=== PATIENT | female | born 1955 | race Caucasian/White ===

== ENCOUNTER → 2016-10-14 | Outpatient (CLI) | payer BC ==
--- NOTE | 2016-10-14 15:59 | MAMMOGRAPHY REPORT ---
BILATERAL DIGITAL SCREENING MAMMOGRAM WITH CAD: 10/14/2016 TECHNIQUE: Current study was also evaluated with a Computer Aided Detection (CAD) system. Bilatera l CC and MLO views were obtained. COMPARISON: Comparison is made to exams dated: 12/24/2014 mammogram, 09/12/2013 mammogram, 08/23/2012 m ammogram, 07/31/2010 mammogram, and 08/04/2011 mammogram - [facility]. BREAST COMPOSITION: There are scattered areas of fibroglandular density in both breasts. FINDINGS: No suspicious masses, calcifications, or areas of architectural distortion are noted in e ither breast. There has been no significant interval change compared to prior exams. Bilateral abdoulaye gn-appearing calcifications are not significantly changed. IMPRESSION: ACR BI-RADS CATEGORY 2: BENIGN There is no mammographic evidence of malignancy. A 1 year screening mammogram is recommended. The p atient will receive written notification of the results. Approximately 10% of breast cancers are not detected with mammography. A negative mammographic repor t should not delay biopsy if a clinically suggestive mass is present. Jeane Ott M.D. ah/:10/14/2016 15:35:18 Cad Application Support Specialist: Chelly HESS(Keith)(M), [facility] letter sent: Normal 1/2 BI-RADS Code: ACR BI-RADS Category 2: Benign
== END | disposition home or self-care (01) ==
LOC: C.MAMM 13:42
PROVIDERS: ATTEND Internal Medicine
DX: Z12.31 Encounter for screening mammogram for malignant neoplasm of breast (principal)

== ENCOUNTER → 2017-08-06 | Outpatient (CLI) | payer BC | END | disposition home or self-care (01) | LOC: C.PAPS 12:09 | PROVIDERS: ATTEND Obstetrics & Gynecology | DX: Z01.419 Encounter for gynecological examination (general) (routine) without abnormal findings (principal) ==

== ENCOUNTER → 2017-10-26 | Outpatient (CLI) | payer OTHER ==
--- NOTE | 2017-10-26 15:15 | MAMMOGRAPHY REPORT ---
BILATERAL DIGITAL SCREENING MAMMOGRAM TOMOSYNTHESIS WITH CAD: 10/26/2017 CLINICAL HISTORY: Routine screening. TECHNIQUE: Breast tomosynthesis in addition to standard 2D mammography was performed. Current study was also evaluated with a Computer Aided Detection (CAD) system. COMPARISON: Comparison is made to exams dated: 10/14/2016 mammogram, 12/31/2014 mammogram, 12/24/2014 ma mmogram, 09/12/2013 mammogram, 08/23/2012 mammogram, and 08/04/2011 mammogram - [facility]. BREAST COMPOSITION: There are scattered areas of fibroglandular density in both breasts. FINDINGS: There are mild vascular calcifications in the breasts and a few benign rim calcifications. No suspicious mass, architectural distortion or cluster of microcalcifications is seen. IMPRESSION: ACR BI-RADS CATEGORY 1: NEGATIVE There is no mammographic evidence of malignancy. A 1 year screening mammogram is recommended. The pa tient will receive written notification of the results. Approximately 10% of breast cancers are not detected with mammography. A negative mammographic report should not delay biopsy if a clinically suggestive mass is present. Chikis Amin M.D. ay/:10/26/2017 08:11:54 Questioned Documents Examiner: Rubina HESS(Keith)(Sal), [facility] letter sent: Normal 1/2 BI-RADS Code: ACR BI-RADS Category 1: Negative
== END | disposition home or self-care (01) ==
LOC: C.MAMM 07:30
PROVIDERS: ATTEND Obstetrics & Gynecology
DX: Z12.31 Encounter for screening mammogram for malignant neoplasm of breast (principal)

== ENCOUNTER 2025-02-10 15:13 | Inpatient (IN) ==
[2025-02-10] MEDS: HYDROmorphone INJ 0.5 MG/0.5 ML SYR IV STA (15:39)
[2025-02-10] MEDS: ONDANSETRON INJ 2 MG/ML 2 ML VIAL IV STA ×2 (15:40→17:20)
[2025-02-10 15:49] LABS: Hematocrit (blood only) 37.0 % (37.0-47.0); Hemoglobin 12.8 g/dl (12.0-16.0); Immature Granulocytes # (auto) 0.01 K/uL (0.01-0.20); Immature Granulocytes % (auto) 0.2 %; Mean Corpuscular Hemoglobin 30.8 pg (25.0-34.0); Mean Corpuscular Volume 88.9 fL (80.0-100.0); Platelet Count 236 K/uL (130-400); RDW Standard Deviation 40.7 fL (36.4-46.3); Red Blood Count 4.16 M/uL (4.20-5.40); White Blood Count 5.42 K/ul (4.8-10.8)
[2025-02-10] MEDS: OPTIRAY 320 100ml IV ONE (15:55)
[2025-02-10 15:57] LABS: Alanine Aminotransferase 20.0 U/L (7-52); Albumin Globulin Ratio 1.3 (0.9-2); Alkaline Phosphatase 73.0 U/L (34-104); Anion Gap 7.0 (3-11); Bilirubin,Total 0.5 mg/dl (0.2-1.0); Blood Urea Nitrogen 13.0 mg/dl (6-23); Calcium 8.8 mg/dl (8.6-10.3); Carbon Dioxide 23.0 mmol/L (21-32); Chloride 108.0 mmol/L (98-107); Creatinine Clr Calc Pharmacy 76.4 ml/min; Globulin 3.1 gm/dl (2.5-4.0); Glucose 115.0 mg/dl (70-99(Fasting)); Lipase 42.0 U/L (11-82); Potassium 3.9 mmol/L (3.5-5.1); Sodium 138.0 mmol/L (136-145); Total Protein 7.0 gm/dl (6.0-8.3)
--- NOTE | 2025-02-10 15:57 | Emergency Department Note ---
Impression & Plan Fall from ladder, Closed comminuted intertrochanteric fracture of left femur, Trauma ED Provider Note HISTORY OF PRESENT ILLNESS: Patient is a 69-year-old female presenting after a fall. Patient reports she was on a 7 foot ladder and fell from the ground just prior to the tiptop. She states that the ladder gave out from under her and she fell to the side, landing on her left hip. She denies striking her head or loss of consciousness. She is on 81 mg of aspirin daily, but no other antiplatelet or anticoagulant therapy. She had obvious pain and deformity to the left leg and was able to get up on her own and her called 911. Patient is currently complaining of 10 out of 10 pain in her left proximal femur and left hip. After my assessment of the patient, a trauma alert was called. Patient last ate lunch at 12 noon. ROS: as above PHYSICAL EXAM: Primary Survey Airway: Intact Breathing: Normal, breath sounds equal bilaterally Circulation: Skin warm, distal pulses 2+, capillary refill less than 2 seconds Disability Pupils: Equal and reactive to light, 3 mm, brisk GCS: 15, E = 4, V=5, M= 6 Motor Function: Moves all extremities. Sensory: No deficits Secondary Survey GEN: Well developed and well-nourished HENT: Head: No external signs of trauma. Mouth/Throat: Midface stable. No malocclusion. Eyes: EOMI. Pupils are 3 mm, round and reactive bilaterally. Nose: No nasal septal hematoma. No gross deformity. Neck: No midline C-spine tenderness. No step-offs. Cardiovascular: RRR. Pulses present in all 4 extremities. Pulmonary/Chest: BS equal bilaterally. No tenderness or ecchymosis. Abdomen: No tenderness or ecchymosis. Musculoskeletal: Pelvis: No instability. Back: No midline tenderness. No step-offs or deformities. Extremities: Obvious deformity to the proximal left leg. Leg is resting externally rotated. No open wounds. Patient has significant tenderness to the deformity overlying her proximal femur. Able to wiggle toes, dorsiflex and plantarflex the ankle. Sensation intact to light touch at the nerve distributions of the lower leg. Intact DP and PT pulses on the left. Skin: No laceration. No abrasion. Neuro: No focal neurological deficits. GCS as above. Psych: Normal mood and affect. MDM: - Vitals signs showed hypertension - History obtained via patient. History as above. - Chronic conditions affecting care: HTN; HLD - Differential diagnoses include, but are not limited to: Femur fracture; femur dislocation; pelvic fracture; liver laceration; pneumothorax; intracranial hemorrhage - Order placed for continuous cardiac monitoring. At this time, monitor showed rate of 67 bpm with normal sinus rhythm, per my interpretation. - External medical records reviewed. - After my initial assessment of the patient, I did activated trauma alert, given her obvious femur deformity and her fall from off of a ladder. X-ray tech presented to bedside. Chest x-ray imaging negative for pneumothorax, per my interpretation. X-ray images of the left hip show comminuted fracture of the proximal femur, per my interpretation. Patient's leg is awkwardly positioned externally rotated with the obvious deformity to the proximal mid thigh. She was given 0.5 mg of IV Dilaudid and 4 mg IV Zofran to help with pain control nausea, and I pulled traction on her lower leg to help anatomically straighten her deformity. Able to straighten the patient's leg out with some improvement in her pain. CT images ordered for further trauma assessment. - Discussed case with LETA, Richie Mei, with orthopedic surgery at 15:48. He will discuss the case with his overseeing orthopedic surgeon, Dr. Kamara. Informed that patient's last PO intake was 12 noon. - Richie Mei recommended, per Dr. Kamara, admit to medicine for medical clearance, placing the patient in Delgado's traction, TXA for the fracture bleed and plan for surgical fixation tomorrow. Richie ordered the Delgado's traction and TXA. - EKG image interpreted by myself showed normal sinus rhythm. Rate 62 bpm. QT 476. No acute ischemic changes. - Laboratory workup interpreted by myself showed normal WBC; normal PT/INR; stable electrolytes; normal lipase - CT head without contrast negative for acute intracranial pathology. - CT cervical spine wo contrast negative for acute traumatic injury - CT chest/abdomen/pelvis with IV contrast negative for acute traumatic injury other than the patient's displaced and comminuted fracture of the intertrochanteric and subtrochanteric femur. - TXA ordered by orthopedics - Patient having continued vomiting. Given zofran but still continued to vomit. Given 5 mg IV compazine. - Patient given PRN zofran and fentanyl for further pain management. Given 1g IV tylenol for further pain control. - Discussion was had with field case manager about patient's case and need for admission - Hospitalist consulted for admission - Patient admitted to [facility] for further evaluation and management. I have personally spent 41 minutes of critical care time in the direct management of this patient. This includes bedside care, interpretation of diagnostic studies, and testing, discussion with consultants, patient, and family members, and other required patient management activities. This 41 minutes is in excess of all separately billable procedures. ASSESSMENT AND PLAN: Diagnosis: Fall off ladder; comminuted comminuted intertrochanteric fracture left femur; trauma Plan: Admit Past Med/Surg History Problem List (Updated 02/10/25 @ 17:41 by Clint Martinez MD) Trauma (Acute) Closed comminuted intertrochanteric fracture of left femur (Acute) Fall from ladder (Acute) Medical History (Updated 02/10/25 @ 17:41 by Clint Martinez MD) Female bladder prolapse Migraine Mild tricuspid regurgitation Mild mitral regurgitation Diastolic dysfunction Hyperlipidemia Prediabetes Surgical History (Updated 02/10/25 @ 17:42 by Clint Martinez MD) History of colonoscopy Family History (Updated 02/10/25 @ 17:44 by Clint Martinez MD) Mother Hypertension Father Hypertension Heart disease Social History Smoking Status: Never smoker Preferred Language: Armenian Feels Safe at Home: Yes Allergies Allergies Allergy/AdvReac Type Severity Reaction Status Date / Time No Known Drug Allergies Allergy Unknown Verified 02/10/25 16:16 Home Meds Home Medications Medication Instructions Recorded Confirmed aspirin 81 mg tablet,delayed 81 mg PO QAM 02/10/25 02/10/25 release rosuvastatin 5 mg tablet 5 mg PO QAM 02/10/25 02/10/25 Results & Data (ED) Vital Signs Vital Signs - 24 hr 02/10/25 15:05 02/10/25 15:30 02/10/25 15:30 Temperature 36.6 C 36.6 C 36.6 C Temperature Source Oral Oral Pulse Rate 64 58 L Pulse Rate [Right Finger] 58 L Respiratory Rate 20 18 20 Respiratory Effort / Characteristics Non-Labored Spontaneous Non-Labored Spontaneous Respiratory Depth Normal Normal Blood Pressure 191/90 H 191/89 H Blood Pressure [Right Arm] 191/89 H Blood Pressure Mean 123 Blood Pressure Mean [Right Arm] 123 Pulse Oximetry 98 98 98 Oxygen Delivery Method Room Air Room Air Room Air Oxygen Flow Rate 0 Sepsis Recent Fever Within 48 Hours No Sepsis New/Unexplained Change in Mental Status No Sepsis Action Taken by Nursing No Action Required 02/10/25 15:43 02/10/25 16:30 02/10/25 17:00 Temperature 36.6 C Temperature Source Oral Pulse Rate 68 Pulse Rate [Right Finger] 64 67 Respiratory Rate 18 20 Respiratory Effort / Characteristics Non-Labored Spontaneous Non-Labored Spontaneous Respiratory Depth Normal Normal Blood Pressure Blood Pressure [Right Arm] 173/124 H 141/99 H Blood Pressure Mean Blood Pressure Mean [Right Arm] 140 113 Pulse Oximetry 99 98 Oxygen Delivery Method Room Air Room Air Oxygen Flow Rate Sepsis Recent Fever Within 48 Hours Sepsis New/Unexplained Change in Mental Status Sepsis Action Taken by Nursing 02/10/25 17:05 02/10/25 17:25 Temperature Temperature Source Pulse Rate Pulse Rate [Right Finger] 67 54 L Respiratory Rate 18 20 Respiratory Effort / Characteristics Non-Labored Spontaneous Non-Labored Spontaneous Respiratory Depth Normal Normal Blood Pressure Blood Pressure [Right Arm] 141/99 H 124/70 Blood Pressure Mean Blood Pressure Mean [Right Arm] 113 88 Pulse Oximetry 98 98 Oxygen Delivery Method Room Air Room Air Oxygen Flow Rate Sepsis Recent Fever Within 48 Hours Sepsis New/Unexplained Change in Mental Status Sepsis Action Taken by Nursing Laboratory Data 02/10/25 15:21 02/10/25 15:21 Lab Results 02/10/25 02/10/25 Range/Units 15:21 15:39 WBC 5.42 (4.8-10.8) K/ul RBC 4.16 L (4.20-5.40) M/uL Hgb 12.8 (12.0-16.0) g/dl POC Hgb 12.9 (12.0-16.0) g/dl Hct 37.0 (37.0-47.0) % POC Hct 38 (37-47) % MCV 88.9 (80.0-100.0) fL MCH 30.8 (25.0-34.0) pg MCHC 34.6 (32.0-36.0) g/dL RDW Std Deviation 40.7 (36.4-46.3) fL RDW Coeff of Nick 12.4 (11.5-14.5) % Plt Count 236 (130-400) K/uL MPV 9.6 (9.4-12.4) fL Immature Gran % (Auto) 0.2 % Neut % (Auto) 50.4 % Lymph % (Auto) 40.2 % [place] % (Auto) 7.9 % Eos % (Auto) 0.9 % Baso % (Auto) 0.4 % Neut # (Auto) 2.73 (1.40-6.50) K/uL Lymph # (Auto) 2.18 (1.20-3.40) K/uL [place] # (Auto) 0.43 (0.11-0.59) K/uL Eos # (Auto) 0.05 (0.00-0.50) K/uL Baso # (Auto) 0.02 (0.00-0.20) K/uL Immature Gran # (Auto) 0.01 (0.01-0.20) K/uL PT 11.0 (9.0-12.0) Seconds INR 1.0 (0.9-1.1) APTT 26 (21-31) Seconds PTT Ratio 1.0 POC Sodium 141 (135-144) mmol/L Sodium 138 (136-145) mmol/L POC Potassium 4.0 (3.3-5.0) mmol/L Potassium 3.9 (3.5-5.1) mmol/L POC Chloride 107 (101-112) mmol/L Chloride 108 H (98-107) mmol/L Carbon Dioxide 23 (21-32) mmol/L POC Total CO2 21 L (24-31) mmol/L Anion Gap 7 (3-11) POC Anion Gap 18.0 (16-25) mmol/L POC BUN 11 (7-18) mg/dl BUN 13 (6-23) mg/dl Creatinine 0.60 (0.6-1.2) mg/dl POC Creatinine 0.6 (0.6-1.3) mg/dl Est Cr Clr Drug Dosing 76.4 ml/min eGFR 97.10 BUN/Creatinine Ratio 21.7 H (10-20) Glucose 115 H (70-99(Fasting)) mg/dl POC Glucose (other) 115 H (70-99) mg/dl Calcium 8.8 (8.6-10.3) mg/dl POC Ioniz Calcium Oleg 1.16 (1.12-1.32) mmol/l Total Bilirubin 0.5 (0.2-1.0) mg/dl AST 24 (13-39) U/L ALT 20 (7-52) U/L Alkaline Phosphatase 73 (34-104) U/L Total Protein 7.0 (6.0-8.3) gm/dl Albumin 3.9 (3.4-5.0) gm/dl Globulin 3.1 (2.5-4.0) gm/dl Albumin/Globulin Ratio 1.3 (0.9-2) Lipase 42 (11-82) U/L Administered Medications Fentanyl Citrate (Fentanyl Citrate Pf 100 Mcg/2 Ml Vial) 50 mcg IV Q45M PRN PRN Reason: Pain Stop: 02/24/25 15:47 Last Admin: 02/10/25 16:35 Dose: 50 mcg Documented By: FLASH Tranexamic Acid (Tranexamic Acid / 0.7% Nacl) 1,000 mg in 100 mls @ 12.5 mls/hr IV .Q8H ONE Stop: 02/11/25 00:10 Last Admin: 02/10/25 16:38 Dose: 12.5 mls/hr Documented By: FLASH Discontinued Medications Acetaminophen (Acetaminophen 500 Mg Tab) 1,000 mg PO NOW STA Stop: 02/10/25 15:49 Last Admin: 02/10/25 16:39 Dose: Not Given Documented By: FLASH Hydromorphone HCl (Hydromorphone Inj 0.5 Mg/0.5 Ml Syr) 0.5 mg IV NOW STA Stop: 02/10/25 15:35 Last Admin: 02/10/25 15:39 Dose: 0.5 mg Documented By: FLASH Tranexamic Acid (Tranexamic Acid / 0.7% Nacl) 1,000 mg in 100 mls @ 600 mls/hr IV NOW STA Stop: 02/10/25 16:20 Last Infusion: 02/10/25 17:06 Dose: Infused Documented By: Admin: 02/10/25 16:35 Dose: 600 mls/hr Documented By: FLASH Acetaminophen (Ofirmev) 1,000 mg in 100 mls @ 400 mls/hr IV NOW STA Stop: 02/10/25 16:33 Last Infusion: 02/10/25 17:05 Dose: Infused Documented By: Admin: 02/10/25 16:27 Dose: 400 mls/hr Documented By: SATHISH Ioversol (Optiray 320 100ml) 93 ml IV ONCE ONE Stop: 02/10/25 15:56 Last Admin: 02/10/25 15:55 Dose: 93 ml Documented By: EDK Miscellaneous Information (Patient's Allergy Info Needs Entered) 1 each N/A Q30M STA Stop: 02/10/25 16:16 Last Admin: 02/10/25 17:26 Dose: 1 each Documented By: CTK Ondansetron HCl (Ondansetron Inj 2 Mg/Ml 2 Ml Vial) 4 mg IV NOW STA Stop: 02/10/25 15:35 Last Admin: 02/10/25 15:40 Dose: 4 mg Documented By: CTK Ondansetron HCl (Ondansetron Inj 2 Mg/Ml 2 Ml Vial) 4 mg IV NOW STA Stop: 02/10/25 17:13 Last Admin: 02/10/25 17:20 Dose: 4 mg Documented By: CTK Imaging Data Radiologist's Impression: Abdomen/Pelvis CT 02/10/25 15:34 CT ABDOMEN and PELVIS with INTRAVENOUS CONTRAST HISTORY: Abdominal pain TECHNIQUE: CT abdomen and pelvis with contrast. IV CONTRAST: 100 mL of OMNIPAQUE 300 ENTERIC CONTRAST: Not Given COMPARISON: FINDINGS: LIVER: Hepatic steatosis. Scattered tiny hypodensities measuring up to 8 mm are probably cysts or hemangiomas GALLBLADDER/BILIARY: Unremarkable gallbladder. No abnormal biliary dilatation. SPLEEN: Unremarkable. PANCREAS: Unremarkable. ADRENALS: Unremarkable. KIDNEYS: Cortical scarring and multiple cortical cysts. There is a thin rind of calcification versus septation in the dominant right renal cyst in the upper pole measuring 2.6 cm. No stones or hydronephrosis identified. PERITONEUM/RETROPERITONEUM. No lymphadenopathy by size criteria. No aortic aneurysm. GASTROINTESTINAL: No obstruction. Normal appendix. Colonic diverticulosis without evidence of diverticulitis. REPRODUCTIVE: No suspicious pelvic mass detected. BONES: Displaced acute and traumatic and comminuted fractures of the intertrochanteric and subtrochanteric left femur and surrounding intramuscular hematomas.. IMPRESSION: Displaced acute and traumatic and comminuted fractures of the intertrochanteric and subtrochanteric left femur and surrounding intramuscular hematomas. Otherwise no evidence of acute visceral trauma in the abdomen or the pelvis. Right renal cystic lesion measuring 2.6 cm with septations versus calcifications. Nonemergent renal ultrasound may be considered to exclude complexity. Electronically signed by Yakov Fuentes 02-10-2025 4:[address] 02/10/25 15:34 CT CERVICAL SPINE WITHOUT CONTRAST: HISTORY: Trauma TECHNIQUE: Noncontrast CT examination of the cervical spine is performed. Coronal and sagittal reformats were created. COMPARISON: None FINDINGS: CERVICAL SPINE: There is no significant vertebral body height loss. No acute traumatic fracture identified. There is no significant spondylolisthesis. Multilevel degenerative changes characterized by disc osteophyte complex, bilateral facet and uncovertebral hypertrophy resulting and neural foraminal narrowing at multiple levels, worst at mid to lower spine. Visualized soft tissues of neck are unremarkable. IMPRESSION: No acute traumatic fracture of the cervical spine. Multilevel degenerative changes as above Electronically signed by Yakov Fuentes 02-10-2025 4:[address] 02/10/25 15:34 CT CHEST WITH CONTRAST: HISTORY: TECHNIQUE: CT of the chest was obtained with intravenous contrast. Coronal and sagittal reformats were created. IV CONTRAST: 100 mL of OMNIPAQUE 300 COMPARISON: FINDINGS: LOWER NECK: Normal thyroid. LYMPH NODES: A few small nonenlarged lymph nodes in the mediastinum. No lymphadenopathy by size criteria. CARDIOVASCULAR: Cardiac size is normal. Coronary artery calcifications are noted. No aortic aneurysm. LUNGS: The trachea and central bronchi are widely patent. No focal confluent infiltrates are seen. There are scattered pulmonary nodules measuring up to 3 mm (for example a perifissural nodule in the left upper lobe (series 8, image 19). PLEURA: There are no pleural effusions. There is no pneumothorax. OSSEOUS STRUCTURES: No acute findings IMPRESSION: No evidence of acute trauma to the thorax. Electronically signed by Yakov Fuentes 02-10-2025 4:33 PM Chest X-Ray 02/10/25 15:34 HISTORY: Left femur deformity after fall. TECHNIQUE: Portable AP radiograph of the chest. COMPARISON: None. FINDINGS: No focal lung consolidation. No pneumothorax or pleural effusion. Normal heart size. Left-sided aortic arch. Midline trachea. air sampling and monitoring leads overlie the chest. No acute osseous abnormality. Included upper abdomen is unremarkable. IMPRESSION: No acute cardiopulmonary findings. Electronically signed by Mal Bah 02-10-2025 3:[address] 02/10/25 15:34 CT HEAD: HISTORY: Trauma TECHNIQUE: Noncontrast CT examination of the head is performed. Coronal and sagittal reformats were created. COMPARISON: None FINDINGS: There is no evidence of intracranial hemorrhage, focal mass effect or midline shift. No fluid collection is identified. The ventricular system is midline and symmetric. Age-related involutional changes of the brain and chronic white matter ischemic changes. 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 The paranasal sinuses and mastoids are well aerated. IMPRESSION: No acute intracranial process identified. Chronic findings as above Electronically signed by Yakov Fuentes 02-10-2025 4:33 PM Hip X-Ray 02/10/25 15:34 HISTORY: Left hip deformity after fall. TECHNIQUE: Left hip, 3 views. COMPARISON: None. FINDINGS: Acute comminuted significantly displaced and angulated fracture involving the intertrochanteric and subtrochanteric regions of the left proximal femur. The visible portion of the left The pelvis appears intact. Soft tissue edema about the left hip. IMPRESSION: Acute comminuted significantly displaced and angulated fracture involving the intertrochanteric and subtrochanteric regions of the left proximal femur. Electronically signed by Mal Bah 02-10-2025 3:53 PM Pelvis X-Ray 02/10/25 15:34 HISTORY: Left femur deformity after fall. TECHNIQUE: AP radiograph of the pelvis. COMPARISON: Left hip radiographs acquired at the same time. FINDINGS: Acute comminuted significantly displaced and angulated fracture involving the intertrochanteric and subtrochanteric regions of the left proximal femur. The femoral heads remain appropriately aligned with the acetabulum. The pelvic and obturator rings appear intact. There is no widening of the pubic symphysis or sacroiliac joints. Included lower lumbar spine is unremarkable. Right femoral head and proximal femur appear intact. IMPRESSION: Acute comminuted significantly displaced and angulated fracture involving the intertrochanteric and subtrochanteric regions of the left proximal femur. Electronically signed by Mal Bah 02-10-2025 3:54 PM Discharge Plan Visit Data Chief Complaint: Trauma ED Provider: Mere Ponce Discharge Problem: Fall from ladder, Closed comminuted intertrochanteric fracture of left femur, Trauma Condition: Serious Forms Stand Alone Forms: My [facility] Prescriptions Prescriptions: No Action aspirin 81 mg Tablet,Delayed Release (Dr/Ec) 81 mg PO QAM rosuvastatin 5 mg tablet 5 mg PO QAM Referrals Referrals: Geronimo Hinkle MD [Primary Care Provider] -
[2025-02-10 16:22] LABS: INR 1.0 (0.9-1.1); Partial Thromboplastin Time 26 Seconds (21-31); Prothrombin Time 11.0 Seconds (9.0-12.0)
[2025-02-10] MEDS: ACETAMINOPHEN 1,000 MG/100 ML VIAL IV STA (16:27)
--- NOTE | 2025-02-10 16:33 | CT Scan Report ---
CT HEAD: HISTORY: Trauma TECHNIQUE: Noncontrast CT examination of the head is performed. Coronal and sagittal reformats were created. COMPARISON: None FINDINGS: There is no evidence of intracranial hemorrhage, focal mass effect or midline shift. No fluid collection is identified. The ventricular system is midline and symmetric. Age-related involutional changes of the brain and chronic white matter ischemic changes. 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 The paranasal sinuses and mastoids are well aerated. IMPRESSION: No acute intracranial process identified. Chronic findings as above Electronically signed by Yakov Fuentes 02-10-2025 4:33 PM
--- NOTE | 2025-02-10 16:34 | CT Scan Report ---
CT ABDOMEN and PELVIS with INTRAVENOUS CONTRAST HISTORY: Abdominal pain TECHNIQUE: CT abdomen and pelvis with contrast. IV CONTRAST: 100 mL of OMNIPAQUE 300 ENTERIC CONTRAST: Not Given COMPARISON: FINDINGS: LIVER: Hepatic steatosis. Scattered tiny hypodensities measuring up to 8 mm are probably cysts or hemangiomas GALLBLADDER/BILIARY: Unremarkable gallbladder. No abnormal biliary dilatation. SPLEEN: Unremarkable. PANCREAS: Unremarkable. ADRENALS: Unremarkable. KIDNEYS: Cortical scarring and multiple cortical cysts. There is a thin rind of calcification versus septation in the dominant right renal cyst in the upper pole measuring 2.6 cm. No stones or hydronephrosis identified. PERITONEUM/RETROPERITONEUM. No lymphadenopathy by size criteria. No aortic aneurysm. GASTROINTESTINAL: No obstruction. Normal appendix. Colonic diverticulosis without evidence of diverticulitis. REPRODUCTIVE: No suspicious pelvic mass detected. BONES: Displaced acute and traumatic and comminuted fractures of the intertrochanteric and subtrochanteric left femur and surrounding intramuscular hematomas.. IMPRESSION: Displaced acute and traumatic and comminuted fractures of the intertrochanteric and subtrochanteric left femur and surrounding intramuscular hematomas. Otherwise no evidence of acute visceral trauma in the abdomen or the pelvis. Right renal cystic lesion measuring 2.6 cm with septations versus calcifications. Nonemergent renal ultrasound may be considered to exclude complexity. Electronically signed by Yakov Fuentes 02-10-2025 4:33 PM
--- NOTE | 2025-02-10 16:34 | CT Scan Report ---
CT CERVICAL SPINE WITHOUT CONTRAST: HISTORY: Trauma TECHNIQUE: Noncontrast CT examination of the cervical spine is performed. Coronal and sagittal reformats were created. COMPARISON: None FINDINGS: CERVICAL SPINE: There is no significant vertebral body height loss. No acute traumatic fracture identified. There is no significant spondylolisthesis. Multilevel degenerative changes characterized by disc osteophyte complex, bilateral facet and uncovertebral hypertrophy resulting and neural foraminal narrowing at multiple levels, worst at mid to lower spine. Visualized soft tissues of neck are unremarkable. IMPRESSION: No acute traumatic fracture of the cervical spine. Multilevel degenerative changes as above Electronically signed by Yakov Fuentes 02-10-2025 4:33 PM
--- NOTE | 2025-02-10 16:34 | CT Scan Report ---
CT CHEST WITH CONTRAST: HISTORY: TECHNIQUE: CT of the chest was obtained with intravenous contrast. Coronal and sagittal reformats were created. IV CONTRAST: 100 mL of OMNIPAQUE 300 COMPARISON: FINDINGS: LOWER NECK: Normal thyroid. LYMPH NODES: A few small nonenlarged lymph nodes in the mediastinum. No lymphadenopathy by size criteria. CARDIOVASCULAR: Cardiac size is normal. Coronary artery calcifications are noted. No aortic aneurysm. LUNGS: The trachea and central bronchi are widely patent. No focal confluent infiltrates are seen. There are scattered pulmonary nodules measuring up to 3 mm (for example a perifissural nodule in the left upper lobe (series 8, image 19). PLEURA: There are no pleural effusions. There is no pneumothorax. OSSEOUS STRUCTURES: No acute findings IMPRESSION: No evidence of acute trauma to the thorax. Electronically signed by Yakov Fuentes 02-10-2025 4:33 PM
[2025-02-10] MEDS: TRANEXAMIC ACID / 0.7% NACL 1,000 MG/100 ML BAG IV STA (16:35)
[2025-02-10] MEDS: TRANEXAMIC ACID / 0.7% NACL 1,000 MG/100 ML BAG IV ONE (16:38)
[2025-02-10] MEDS: ACETAMINOPHEN 500 MG TAB PO STA (16:39)
[2025-02-10] MEDS ORDERED: TRANEXAMIC ACID / 0.7% NACL 1,000 MG/100 ML BAG IV ONE ×3 (16:43→22:43)
[2025-02-10] MEDS ORDERED: MAGNESIUM HYDROXIDE SUSP 30 ML UDC PO PRN (17:24)
[2025-02-10] MEDS ORDERED: NALOXONE HCL 0.4 MG/1 ML VIAL/CARP IV PRN (17:24)
--- NOTE | 2025-02-10 17:31 | History & Physical Report ---
Date of Service February 10, 2025 Assessment & Plan (1) Closed comminuted intertrochanteric fracture of left femur: Plan: Pt presents as trauma after falling off the ladder Prior to fall she fell well, only takes statin and ASA, some supplements, follows w/ Dr. Hinkle ([facility] PCP) In ED flores scanned CT - c/w Displaced acute and traumatic and comminuted fractures of the intertrochanteric and subtrochanteric left femur and surrounding intramuscular hematomas. Currently pt lying in bed , traction to LLE applied Orthopedics (Dr. Kamara) was consulted by ED provider and discussed with ED provider - orders in EMS Plan for surg. repair tomorrow, NPO after MN, hold asa tranexamic acid, pre-op cefazolin also ordered by ortho Anesthesia consulted by orthopedics cont. w/SCDs for now, DVT ppx per orthopedics pain control prn ordered Revised cardiac risk index for pre-op risk - 0 points -> 3.9% risk of major cardiac event Incidental finding Right renal cystic lesion measuring 2.6 cm with septations versus calcifications. Nonemergent renal ultrasound may be considered to exclude complexity. Follow up as outpt Chronic conditions: Prediabetes. Hgb A1c 5.6% in March 2024 - already has scheduled repeat w/ pcp. monitor Blood glc level while inpt Hyperlipidemia - cont. statin Hx of PVCs, diastolic dysfunction, mild mitral regurg., mild tricuspid regurg. - monitor fluid status, however no prior hx of HF (2) Trauma: (3) Fall from ladder: History of Present Illness Chief Complaint: fall, femur fx Primary Care Provider: Geronimo Hinkle MD 69 F with hx of prediabetes, hyperlipidemia, PVC, mild mitral regurg., mild tricuspid regurg., diastolic dysfunction, hx of bladder prolapse, hx of migraine who presents in ED via EMS after falling off ladder and hitting side of her left leg, found to have left comminuted significantly displaced and angulated femur fracture. Pt was gardening, standing on the ladder and trimming wisteria bushes when the ladder tipped over on its side and she ended up falling on her left leg. Prior to this, she felt well and in her good health. No fever, chills, chest pain, shortness of breath, no abd. pain, n/v. No lightheadedness, or dizziness. Pt's is present at the bedside and helps provide history, says he was in the house when he heard her scream and reports it was obvious when he found her she had significant injury to her leg. Pt's friends also present at the bedside visiting. Pt is currently lying in bed, with her left leg in traction, she is awake, alert, answers appropriately. Reports some nausea after getting pain meds. Per ED provider, orthopedic surgery, Dr. Kamara consulted and plans to operate on the pt tomorrow. Anesthesia also consulted. Allergies Allergy/AdvReac Type Severity Reaction Status Date / Time No Known Drug Allergies Allergy Unknown Verified 02/10/25 16:16 Home Medications Medication Instructions Recorded Confirmed Type aspirin 81 mg tablet,delayed 81 mg PO QAM 02/10/25 02/10/25 History release rosuvastatin 5 mg tablet 5 mg PO QAM 02/10/25 02/10/25 History Past Med/Surg History Problem List (Updated 02/10/25 @ 17:41 by Clint Martinez MD) Trauma (Acute) Closed comminuted intertrochanteric fracture of left femur (Acute) Fall from ladder (Acute) Medical History (Updated 02/10/25 @ 17:41 by Clint Martinez MD) Female bladder prolapse Migraine Mild tricuspid regurgitation Mild mitral regurgitation Diastolic dysfunction Hyperlipidemia Prediabetes Surgical History (Updated 02/10/25 @ 17:42 by Clint Martinez MD) History of colonoscopy Family History (Updated 02/10/25 @ 17:44 by Clint Martinez MD) Mother Hypertension Father Hypertension Heart disease Social History Smoking Status: Never smoker Preferred Language: Mozambican Feels Safe at Home: Yes Review of Systems Review of Systems: All systems reviewed & are unremarkable except as noted in HPI & below Physical Exam Constitutional: WD/WN, vitals as above Eyes: PERRL, conjunctivae normal, anicteric sclerae ENMT: external ear and nose normal, oropharynx normal Neck: normal visual inspection Respiratory: normal respiratory effort, lungs clear to auscultation Cardiovascular: RRR, no murmur, no edema Chest (Breasts): Chest: normal inspection of chest Gastrointestinal (Abdomen): normal bowel sounds, soft, nontender, no hepatosplenomegaly Musculoskeletal: LLE in traction d/t fractures, no LE edema Skin: no rashes, warm and dry Neurologic: PERRL, EOMI, accommodation nl, no face palsy, no dysarthria Psychiatric: A+Ox3, euthymic affect Results & Data Results & Data Vital Signs (Past 12 Hours) Vital Signs Temp Pulse Pulse Resp BP BP Pulse Ox 02/10/25 17:05 67 18 141/99 H 98 02/10/25 17:00 36.6 C 67 20 141/99 H 98 02/10/25 16:30 64 18 173/124 H 99 02/10/25 15:43 68 02/10/25 15:30 36.6 C 58 L 20 191/89 H 98 02/10/25 15:30 36.6 C 58 L 18 191/89 H 98 02/10/25 15:05 36.6 C 64 20 191/90 H 98 O2 Del Method O2 Flow Rate 02/10/25 17:05 Room Air 02/10/25 17:00 Room Air 02/10/25 16:30 Room Air 02/10/25 15:43 02/10/25 15:30 Room Air 02/10/25 15:30 Room Air 0 02/10/25 15:05 Room Air Laboratory Results 02/10/25 02/10/25 Range/Units 15:39 15:21 WBC 5.42 (4.8-10.8) K/ul RBC 4.16 L (4.20-5.40) M/uL Hgb 12.8 (12.0-16.0) g/dl POC Hgb 12.9 (12.0-16.0) g/dl Hct 37.0 (37.0-47.0) % POC Hct 38 (37-47) % MCV 88.9 (80.0-100.0) fL MCH 30.8 (25.0-34.0) pg MCHC 34.6 (32.0-36.0) g/dL RDW Std Deviation 40.7 (36.4-46.3) fL RDW Coeff of Nick 12.4 (11.5-14.5) % Plt Count 236 (130-400) K/uL MPV 9.6 (9.4-12.4) fL Immature Gran % (Auto) 0.2 % Neut % (Auto) 50.4 % Lymph % (Auto) 40.2 % Dundy % (Auto) 7.9 % Eos % (Auto) 0.9 % Baso % (Auto) 0.4 % Neut # (Auto) 2.73 (1.40-6.50) K/uL Lymph # (Auto) 2.18 (1.20-3.40) K/uL [place]undy # (Auto) 0.43 (0.11-0.59) K/uL Eos # (Auto) 0.05 (0.00-0.50) K/uL Baso # (Auto) 0.02 (0.00-0.20) K/uL Immature Gran # (Auto) 0.01 (0.01-0.20) K/uL PT 11.0 (9.0-12.0) Seconds INR 1.0 (0.9-1.1) APTT 26 (21-31) Seconds PTT Ratio 1.0 POC Sodium 141 (135-144) mmol/L Sodium 138 (136-145) mmol/L POC Potassium 4.0 (3.3-5.0) mmol/L Potassium 3.9 (3.5-5.1) mmol/L POC Chloride 107 (101-112) mmol/L Chloride 108 H (98-107) mmol/L Carbon Dioxide 23 (21-32) mmol/L POC Total CO2 21 L (24-31) mmol/L Anion Gap 7 (3-11) POC Anion Gap 18.0 (16-25) mmol/L POC BUN 11 (7-18) mg/dl BUN 13 (6-23) mg/dl Creatinine 0.60 (0.6-1.2) mg/dl POC Creatinine 0.6 (0.6-1.3) mg/dl Est Cr Clr Drug Dosing 76.4 ml/min eGFR 97.10 BUN/Creatinine Ratio 21.7 H (10-20) Glucose 115 H (70-99(Fasting)) mg/dl POC Glucose (other) 115 H (70-99) mg/dl Calcium 8.8 (8.6-10.3) mg/dl POC Ioniz Calcium Oleg 1.16 (1.12-1.32) mmol/l Total Bilirubin 0.5 (0.2-1.0) mg/dl AST 24 (13-39) U/L ALT 20 (7-52) U/L Alkaline Phosphatase 73 (34-104) U/L Total Protein 7.0 (6.0-8.3) gm/dl Albumin 3.9 (3.4-5.0) gm/dl Globulin 3.1 (2.5-4.0) gm/dl Albumin/Globulin Ratio 1.3 (0.9-2) Lipase 42 (11-82) U/L Diagnostic Findings Pelvic XR, Hip XR IMPRESSION: Acute comminuted significantly displaced and angulated fracture involving the intertrochanteric and subtrochanteric regions of the left proximal femur. Head CT IMPRESSION: No acute intracranial process identified. CXR IMPRESSION: No acute cardiopulmonary findings. CT chest IMPRESSION: No evidence of acute trauma to the thorax. A few small nonenlarged lymph nodes in the mediastinum. No lymphadenopathy by size criteria. No focal confluent infiltrates are seen. There are scattered pulmonary nodules measuring up to 3 mm (for example a perifissural nodule in the left upper lobe (series 8, image 19). CT cervical spine IMPRESSION: No acute traumatic fracture of the cervical spine. Multilevel degenerative changes CT abdomen/pelvis IMPRESSION: Displaced acute and traumatic and comminuted fractures of the intertrochanteric and subtrochanteric left femur and surrounding intramuscular hematomas. Otherwise no evidence of acute visceral trauma in the abdomen or the pelvis. Right renal cystic lesion measuring 2.6 cm with septations versus calcifications. Nonemergent renal ultrasound may be considered to exclude complexity. Medications Administered Current Inpatient Medications Bisacodyl (Bisacodyl 10 Mg Supp) 10 mg [place] DAILY PRN PRN Reason: Constipation Stop: 03/12/25 17:23 Fentanyl Citrate (Fentanyl Citrate Pf 100 Mcg/2 Ml Vial) 50 mcg IV Q45M PRN PRN Reason: Pain Stop: 02/24/25 15:47 Last Admin: 02/10/25 16:35 Dose: 50 mcg Tranexamic Acid (Tranexamic Acid / 0.7% Nacl) 1,000 mg in 100 mls @ 12.5 mls/hr IV .Q8H ONE Stop: 02/11/25 00:10 Last Admin: 02/10/25 16:38 Dose: 12.5 mls/hr Cefazolin Sodium (Ancef 2000mg) 2,000 mg in 15 mls @ 3.75 mls/min IV PREOP FELISA; Protocol Stop: 02/12/25 05:59 Tranexamic Acid (Tranexamic Acid / 0.7% Nacl) 1,000 mg in 100 mls @ 600 mls/hr IV ONE ONE Stop: 02/10/25 22:52 Magnesium Hydroxide (Magnesium Hydroxide Susp 30 Ml Udc) 30 ml PO DAILY PRN PRN Reason: Constipation Stop: 03/12/25 17:23 Naloxone HCl (Naloxone Hcl 0.4 Mg/1 Ml Vial/Carp) 0.1 mg IV UD PRN PRN Reason: Opiate Overdose Stop: 03/12/25 17:23 Ondansetron HCl (Ondansetron Inj 2 Mg/Ml 2 Ml Vial) 4 mg IV Q6H PRN PRN Reason: Nausea And Vomiting Stop: 03/12/25 17:11
[2025-02-10] MEDS: PROCHLORPERAZINE 1 ML IV ONE (17:50)
[2025-02-10 22:41] LABS: Appearance Urine Clear (Clear); Bacteria Urine Automated None Seen (None Seen); Cast Urine Automated 0-2 /lpf (0-2); Epithelial Cell Urine Auto 0-2 /hpf (0-2); Glucose Urine UA Negative (Negative); RBC Urine Automated 0-2 /hpf (0-2); WBC Urine Automated 0-5 /hpf (0-5)
[2025-02-11] MEDS: HYDROmorphone INJ 0.5 MG/0.5 ML SYR IV PRN (02:31)
[2025-02-11] MEDS: ONDANSETRON INJ 2 MG/ML 2 ML VIAL IV PRN ×2 (02:32→14:39)
[2025-02-11] MEDS ORDERED: PROMETHAZINE 6.25 MG/50.25 ML BAG IV PRN (06:13)
[2025-02-11 06:49] LABS: Hematocrit (blood only) 34.4 % (37.0-47.0); Hemoglobin 11.1 g/dl (12.0-16.0); Mean Corpuscular Hemoglobin 29.9 pg (25.0-34.0); Mean Corpuscular Volume 92.7 fL (80.0-100.0); Platelet Count 211 K/uL (130-400); RDW Standard Deviation 42.8 fL (36.4-46.3); Red Blood Count 3.71 M/uL (4.20-5.40); White Blood Count 6.99 K/ul (4.8-10.8)
[2025-02-11 07:09] LABS: Anion Gap 5.0 (3-11); Blood Urea Nitrogen 13.0 mg/dl (6-23); Calcium 8.4 mg/dl (8.6-10.3); Carbon Dioxide 28.0 mmol/L (21-32); Chloride 106.0 mmol/L (98-107); Creatinine Clr Calc Pharmacy 74.0 ml/min; Glucose 118.0 mg/dl (70-99(Fasting)); Magnesium 2.1 mg/dl (1.7-2.4); Potassium 4.2 mmol/L (3.5-5.1); Sodium 139.0 mmol/L (136-145)
--- NOTE | 2025-02-11 08:33 | Orthopedic Consultation ---
Date of Service February 11, 2025 Assessment & Plan (1) Subtrochanteric fracture of left femur: Plan 69-year-old female with a subtrochanteric femur fracture after fall from a ladder. He is in otherwise good health. Explained the diagnosis, prognosis, and recommended treatment of open or close reduction and intramedullary nail fixation. Discussed indications for the technique, the types of implants were used, the expectation or outcome, and required rehabilitation. Discussed risk include but are not limited to infection, nerve or vessel injury, arthrofibrosis of the hip, need for repeat revision surgeries, symptomatic implants, nonunion, malunion, blood clots, pain syndromes, and complications related anesthesia. She asked appropriate questions, demonstrated good understanding, and wants to proceed with surgical care. Informed consent was obtained today in the preop holding area. History of Present Illness Reason for Consultation: Intertroch/subtroch L femur Fx Requesting Physician: . Attending Physician: Martín Banda MD 69-year-old female presenting after a fall from a 7 foot ladder. She states that the ladder gave out from under her and she fell to the side, landing on her left hip. She denies striking her head or loss of consciousness. She is on 81 mg of aspirin daily, but no other antiplatelet or anticoagulant therapy. She had obvious pain and deformity to the left leg and was able to get up on her own and her called 911. Was admitted overnight for preoperative workup. She was stabilized with TXA. Delgado's traction and assisted with pain control. Cleared for surgery. Allergies Allergy/AdvReac Type Severity Reaction Status Date / Time No Known Drug Allergies Allergy Unknown Verified 02/10/25 16:16 Home Medications Medication Instructions Recorded Confirmed Type aspirin 81 mg tablet,delayed 81 mg PO QAM 02/10/25 02/10/25 History release rosuvastatin 5 mg tablet 5 mg PO QAM 02/10/25 02/10/25 History Past Med/Surg History Problem List (Updated 02/11/25 @ 09:42 by Bryce Kamara MD) Subtrochanteric fracture of left femur Trauma (Acute) Fall from ladder (Acute) Medical History Female bladder prolapse Migraine Mild tricuspid regurgitation Mild mitral regurgitation Diastolic dysfunction Hyperlipidemia Prediabetes Surgical History History of colonoscopy Family History Mother Hypertension Father Hypertension Heart disease Social History Smoking Status: Never smoker Hx Alcohol Use: Yes Alcohol type: wine Hx Substance Use: No Preferred Language: [place] Communication Ability: Effective Seam Finisher Required: No Beliefs That Will Affect Care: None Current Living Situation: Spouse Other Information That Helps Us Care for You: No Feels Safe at Home: Yes Safety Concerns: Feels Safe At This Time Assistive Devices: Contacts Review of Systems All systems reviewed & are unremarkable except as noted in HPI & below. Physical Exam Left hip: No skin compromise. DNVI Constitutional WD/WN, vitals as above no acute distress and not intoxicated appearing Respiratory normal respiratory effort; no labored breathing Cardiovascular Extremities: normal capillary refill Results & Data Results & Data Laboratory Results H & H 02/10/25 02/11/25 Range/Units 15:21 06:22 Hgb 12.8 11.1 L (12.0-16.0) g/dl Hct 37.0 34.4 L (37.0-47.0) % Coagulation 02/10/25 Range/Units 15:21 INR 1.0 (0.9-1.1) Diagnostic Findings Pelvis and hip x-rays demonstrate a comminuted subtrochanteric femur fracture. PG Care Time/CCT Total # of Minutes Spent Total Time Spent with Patient: Total time spent is greater than 50% in coordination of care (as documented) at patient's floor/unit and/or counseling patient: Coding Level of Care Code 14267 IN/OBS CONSULT LVL 4,60M (57 - DECISION FOR SURGERY) Diagnoses Subtrochanteric fracture of left femur S72.22XA
[2025-02-11] MEDS ORDERED: ONDANSETRON INJ 2 MG/ML 2 ML VIAL ONE (08:35)
[2025-02-11] MEDS ORDERED: ROCURONIUM BROMIDE 10 MG/ML 5 ML VIAL IV ONE (08:35)
[2025-02-11] MEDS ORDERED: PROPOFOL IV EMULSION 10 MG/ML 20 ML VIAL IV ONE (08:35)
[2025-02-11] MEDS ORDERED: DEXAMETHASONE SOD INJ 4 MG/ML VIAL ONE (08:35)
--- NOTE | 2025-02-11 09:28 | Anesthesiology Consultation ---
Date of Service February 11, 2025 Assessment & Plan Chart Review Chart Review: Acceptable Risk for Surgery and Patient NOT seen in Pre Admission Testing History Surgery Operation Date: 02/11/25 09:00 Proposed Procedures p Intramedullary Dain Femur(Left) - Bryce Kamara MD Height/Weight Height: 5 ft 4 in Weight: 65.2 kg Allergies Allergy/AdvReac Type Severity Reaction Status Date / Time No Known Drug Allergies Allergy Unknown Verified 02/10/25 16:16 Medications Home Medications Medication Instructions Recorded Confirmed Last Taken aspirin 81 mg tablet,delayed 81 mg PO QAM 02/10/25 02/10/25 02/10/25 release rosuvastatin 5 mg tablet 5 mg PO QAM 02/10/25 02/10/25 02/10/25 Active Medications Generic Name Dose Route Start Last Admin Trade Name Freq PRN Reason Stop Dose Admin Hydromorphone HCl 0.5 mg 02/10/25 18:35 02/11/25 08:51 Hydromorphone Inj 0.5 Mg/0.5 Ml Syr IV 02/24/25 18:44 0.5 mg Q3H PRN Administration pain Past Medical History Medical History Female bladder prolapse Migraine Mild tricuspid regurgitation Mild mitral regurgitation Diastolic dysfunction Hyperlipidemia Prediabetes Past Family History Family History Mother Hypertension Father Hypertension Heart disease Past Surgical History Surgical History History of colonoscopy Social History Smoking Status: Never smoker Hx Alcohol Use: Yes Alcohol type: wine alcohol intake frequency: a few times a week Hx Substance Use: No substance use type: does not use Physical Exam Vital Signs Last Vital Signs Temp 36.6 C 02/11/25 07:49 Pulse 55 L 02/11/25 07:49 Resp 16 02/11/25 07:49 BP 147/55 H 02/11/25 07:49 Pulse Ox 100 02/11/25 07:49 O2 Del Method Nasal Cannula 02/11/25 07:49 O2 Flow Rate 2 02/11/25 07:49 Testing Laboratory Results 02/11/25 06:22 02/11/25 06:22 PT 11.0 Seconds (9.0-12.0) 02/10/25 15:21 INR 1.0 (0.9-1.1) 02/10/25 15:21 APTT 26 Seconds (21-31) 02/10/25 15:21 Urine Color Yellow 02/10/25 22:26 Urine Appearance Clear (Clear) 02/10/25 22: Urine pH 6.5 (4.5-7.5) 02/10/25 22: Ur Specific [place] > 1.045 (1.000-1.030) H 02/10/25 22:26 Urine Protein Trace (Negative) H 02/10/25 22: Urine Glucose (UA) Negative (Negative) 02/10/25: Urine Ketones Trace (Negative) H 02/10/25: Urine Nitrite Negative (Negative) 02/10/25 22: Ur Leukocyte Esterase Negative (Negative) 02/10/25: Urine WBC (Auto) 0-5 /hpf (0-5) 02/10/25 22: Urine RBC (Auto) 0-2 /hpf (0-2) 02/10/25: U Hyaline Cast (Auto) 0-2 /lpf (0-2) 02/10/25 22: U Epithel Cells (Auto) 0-2 /hpf (0-2) 02/10/25: Urine Bacteria (Auto) None Seen (None Seen) 02/10/25 22:
[2025-02-11] MEDS: ROSUVASTATIN CALCIUM 5 MG TAB PO SCH (09:30)
[2025-02-11] MEDS ORDERED: HYDROmorphone INJ 1 MG/ML SYRINGE IV PRN (09:41)
[2025-02-11] MEDS ORDERED: ATROPINE SULFATE 0.1 MG/ML 10ML SYR IV PRN (09:41)
[2025-02-11] MEDS ORDERED: ONDANSETRON INJ 2 MG/ML 2 ML VIAL IV PRN (09:41)
[2025-02-11] MEDS ORDERED: PROMETHAZINE HCL 6.25 MG in SODIUM CHLORIDE 0.9% 50 ML IV PRN (09:41)
[2025-02-11] MEDS: TRANEXAMIC ACID 1,000 MG **IV Pre-op IV SCH (10:00)
[2025-02-11] MEDS ORDERED: GLYCOPYRROLATE 0.2 MG/ML VIAL ONE (10:18)
[2025-02-11] MEDS ORDERED: PHENYLEPHRINE 100MCG/ML 5ML SYR ONE (10:27)
--- NOTE | 2025-02-11 11:36 | Hospitalist Progress Note ---
Date of Service February 11, 2025 Assessment & Plan (1) Trauma: (2) Fall from ladder: (3) Subtrochanteric fracture of left femur: Plan: Acute comminuted displaced Subtrochanteric fracture of left femur Secondary to mechanical fall --Hip X ray:Acute comminuted significantly displaced and angulated fracture involving the intertrochanteric and subtrochanteric regions of the left proximal femur. --S/P left proximal femur fracture closed reduction and cephalomedullary nail internal fixation by on 02/11/25 Fall precautions PT OT when appropriate Continue bowel regimen to prevent constipation Pain control as needed Wound care, activity per orthopedics On aspirin twice daily for DVT prophylaxis Monitor for postop anemia Right renal cyst Incidental finding on CT --ABD CT:Right renal cystic lesion measuring 2.6 cm with septations versus calcifications. Needs nonemergent renal ultrasound Follow-up as outpatient H/O PVCs, diastolic dysfunction, valvular heart disease Monitor volume status Currently no signs of volume overload Monitor and replete electrolytes as needed Prediabetes Last HbA1c 5.6 Hyperlipidemia Continue statin Code Status Full Code Admission and Anticipated Discharge Date Admission Date: February 10, 2025 Subjective Patient is seen and examined at bedside States having left leg pain especially with movement Reports intermittent nausea associated with pain Discussed with patient's family at bedside Denies any chest pain, dyspnea, dizziness Plan for ORIF today Review of Systems Review of Systems: All systems reviewed & are unremarkable except as noted in Subjective Physical Exam Physical Exam: Physical Exam: Vitals signs as noted above General Appearance:Moderately built and nourished, no apparent distress Head: normocephalic, Atraumatic Eyes: normal inspection, EOMI Neck: supple, Trachea midline Respiratory/Chest: Normal breath sounds, CTA, No accessory muscle use Cardiovascular: S1, S2, No murmur Abdomen/GI:Soft, Non tender, Bowel sounds present Extremities/Musculoskeletal:normal inspection, Left LE in traction Neurologic/Psych:AAOX3, grossly no focal neurological deficits Skin: normal color, warm Results & Data Results & Data Vital Signs (Past 12 Hours) Vital Signs Temp Pulse Resp BP Pulse Ox O2 Del Method O2 Flow Rate 02/11/25 07:49 36.6 C 55 L 16 147/55 H 100 Nasal Cannula 2 02/11/25 06:22 129/71 Laboratory Results Short CBC 02/10/25 02/11/25 Range/Units 15:21 06:22 WBC 5.42 6.99 (4.8-10.8) K/ul Hgb 12.8 11.1 L (12.0-16.0) g/dl Hct 37.0 34.4 L (37.0-47.0) % Plt Count 236 211 (130-400) K/uL BMP 02/10/25 02/11/25 15:21 06:22 Sodium 138 139 Potassium 3.9 4.2 Chloride 108 H 106 Carbon Dioxide 23 28 BUN 13 13 Creatinine 0.60 0.62 Glucose 115 H 118 H Calcium 8.8 8.4 L Liver Function 02/10/25 Range/Units 15:21 Total Bilirubin 0.5 (0.2-1.0) mg/dl AST 24 (13-39) U/L ALT 20 (7-52) U/L Alkaline Phosphatase 73 (34-104) U/L Albumin 3.9 (3.4-5.0) gm/dl Urine 02/10/25 Range/Units 22:26 Urine Color Yellow Urine Appearance Clear (Clear) Urine pH 6.5 (4.5-7.5) Ur Specific [place] > 1.045 H (1.000-1.030) Urine Protein Trace H (Negative) Urine Glucose (UA) Negative (Negative)
[2025-02-11] MEDS: BUPIVACAINE/EPINEPHRINE 0.5% MPF 1:200,000 30 ML VIAL ONE (12:19)
--- NOTE | 2025-02-11 13:02 | Fluoroscopy Report ---
FL hip LT 2-3V CLINICAL HISTORY: LEFT HIP FXacute fracture of the left hip COMPARISON STUDY: Radiographs 02/10/2025 FLUOROSCOPY TIME: 258.4 seconds FLUOROSCOPY IMAGES: 7 EXPOSURE DOSE: 46.15 mGy FINDINGS: Status post placement of intertrochanteric nail with medullary molly fixating the acute commi nuted proximal left femoral fracture which demonstrates improved alignment. Mild persistent displacem ent is noted both laterally and posteriorly. Expected postoperative soft tissue swelling and deep tis bill air. IMPRESSION: Fluoroscopic assistance as above. ACT 112: Negative or not required by law. Electronically signed by: Reynold Dowling M.D. 02/11/2025 1:01 PM
[2025-02-11] MEDS ORDERED: NALOXONE HCL 0.4 MG/1 ML VIAL/CARP IV PRN (13:09)
[2025-02-11] MEDS ORDERED: MAGNESIUM HYDROXIDE SUSP 30 ML UDC PO PRN (13:09)
--- NOTE | 2025-02-11 13:16 | Anesthesiology Progress Note ---
Date of Service February 11, 2025 Anesthesia Post Procedure Vital Signs Vital Signs: Temp Pulse Pulse Pulse Pulse Resp BP 02/11/25 13:10 63 14 02/11/25 13:00 67 12 02/11/25 12:53 36.1 C L 70 19 02/11/25 07:49 36.6 C 55 L 16 02/11/25 06:22 02/10/25 22:28 36.4 C L 56 L 18 02/10/25 20:28 36.3 C L 58 L 18 168/78 H 02/10/25 20:00 55 L 18 02/10/25 20:00 36.3 C L 58 L 18 02/10/25 19:37 51 L 02/10/25 19:00 56 L 18 02/10/25 18:37 02/10/25 18:00 36.8 C 52 L 21 02/10/25 17:25 02/10/25 17:25 54 L 20 02/10/25 17:05 67 18 02/10/25 17:00 36.6 C 67 20 02/10/25 16:30 64 18 02/10/25 15:43 68 02/10/25 15:30 36.6 C 58 L 20 02/10/25 15:30 36.6 C 58 L 18 191/89 H 02/10/25 15:05 36.6 C 64 20 191/90 H BP BP Pulse Ox O2 Del Method O2 Flow Rate 02/11/25 13:10 144/72 H 94 Room Air 02/11/25 13:00 153/75 H 98 Room Air 02/11/25 12:53 168/74 H 96 Room Air 02/11/25 07:49 147/55 H 100 Nasal Cannula 2 02/11/25 06:22 129/71 02/10/25 22:28 151/73 H 99 Nasal Cannula 2 02/10/25 20:28 98 Nasal Cannula 2 02/10/25 20:00 161/78 H 98 Nasal Cannula 2 02/10/25 20:00 161/78 H 100 Nasal Cannula 2 02/10/25 19:37 02/10/25 19:00 159/72 H 98 Nasal Cannula 2 02/10/25 18:37 98 Nasal Cannula 2 02/10/25 18:00 147/78 H 97 Room Air 02/10/25 17:25 98 Nasal Cannula 2 02/10/25 17:25 124/70 98 Room Air 02/10/25 17:05 141/99 H 98 Room Air 02/10/25 17:00 141/99 H 98 Room Air 02/10/25 16:30 173/124 H 99 Room Air 02/10/25 15:43 02/10/25 15:30 191/89 H 98 Room Air 02/10/25 15:30 98 Room Air 0 02/10/25 15:05 98 Room Air Pain Intensity Left Leg: Pain Intensity: 10 Transfer of Care Handoff Completed per policy Notes Mental Status: alert / awake / arousable and participated in evaluation Patient Amnestic to Procedure: Yes Nausea / Vomiting: adequately controlled Pain: adequately controlled Airway Patency, RR, SpO2: stable & adequate BP & HR: stable & adequate Hydration State: stable & adequate Anesthetic Complications: no major complications apparent and Pt Satisfied with anesthetic care
--- NOTE | 2025-02-11 13:19 | Operative Report ---
PG Post Operative Report Pre & Post Diagnosis Operation Date: 02/11/25 09:00 Pre-Op Diagnosis: Subtrochanteric fracture of left femur Post-Op Diagnosis: Subtrochanteric fracture of left femur I identified the patient and participated in the time-out.: Yes Procedure Operation Date: 02/11/25 09:00 Actual Procedures p left proximal femur fracture closed reduction and cephalomedullary nail internal fixation(Left) - Bryce Kamara MD Surgeon Bryce Kamara MD Residential Program Coordinator Richie Mei PA-C Estimated Blood Loss 150 Findings See Below Comminuted subtrochanteric femur fracture. All [employer] implants: 11 mm/130 degree titanium cannulated trochanteric fixation nail of 360 mm length. 11.0 mm titanium helical blade of 85 mm length locked for rotation and sliding. 2 static distal interlock screws measuring 40 and 46 mm. Specimens none Anesthesia Type MAC Spinal Regional Complications none Disposition Accompanied Patient To Recovery: No Disposition: Surgical ICU Indications 69-year-old female fell from ladder height resulting in right subtrochanteric comminuted femur fracture. She is admitted to the hospital overnight where she rested on Delgado's traction. After clearance for surgery, she was recommended to have surgical management of the fracture. The risks, benefits and alternatives to open or closed reduction and internal fixation with a cephalomedullary nail were outlined with her. After discussion, she desired to proceed with surgery. Informed consent was documented in preoperative holding area. Description of Procedure On the day of surgery should be was greeted in the preoperative holding area and the informed consent was reviewed and confirmed. The surgical site was then identified by the patient and signed by myself. The patient was taken to the operating room, placed upon the OR table, and anesthesia was induced. The patient was then positioned on the [place] fracture table. All [facility] were well padded. Both feet were placed in the fracture boots with abundant padding. We then positioned the lower extremities in a scissor fashion with a non-op leg flexed down to allow visualization with fluoroscopy which was confirmed before we prepped and draped. Surgical timeout was called and verified by all present. Antibiotics were infused, and equipment was available and functional. The procedure was initiated with a closed reduction maneuvers. Gentle in-line traction pulled the fracture out to length. The limb was then internally rotated to reduce the proximal femur. Flexion and adduction were used to adjust the reduction and allow access to the greater trochanter while respecting the varus deformity that was developing from the post at the subtrochanteric region. We had adequate reduction prior to prepping and draping. The leg was then prepped and draped in usual sterile fashion. Surgical timeout was reconfirmed. We initiated the surgical internal fixation portion with finding the start point with the tip of the greater trochanter. Fluoroscopic guidance was used and a small poke hole was established. The start point was confirmed on fluoroscopy in AP and lateral planes and the pin was advanced using a mallet. An incision was made about the pin to allow access for the reamers. The pin was then advanced past the lesser trochanter, and its position was confirmed using AP and lateral fluoroscopy. The patient had a lot of freedom to advance because of the posterior comminution in the proximal fragment and trochanteric region. With multiple views AP and lateral we able to place the starting pin in appropriate position for the opening reamer. Using the protective sleeve, the opening reamer was advanced under power with fluoroscopic guidance over the guidepin. The reduction wire was then advanced down the distal femur to the level of the superior pole of the patella. This took significant effort manual reduction. The long reduction sore was placed over the guidewire through the proximal fragments. A Foy was placed in the anterior segment of the proximal fragment to lever it out of flexion. This was done through a provisional incision that would be subsequently used for the helical blade. This was established using fluoroscopy for guidance to the incision site. The bed tip guidewire was eventually positioned so that it could enter the distal shaft fragment. Rotation and traction were adjusted based on the comminuted subtrochanteric segment. Measurement was taken from the tip of the trochanter down to the end of the guidewire, and the 240 mm was selected. We then began sequential reaming. We started with 9.5 and used fluoroscopy to guide our reaming. We advanced the reaming in gradual increments up to a 12.5. An 11 mm nail was loaded onto the jig and advanced manually down the canal, while ensuring maintenance of the reduction on fluoroscopy. We then tapped it down into place until we achieve the good position for our cephalo-medullary screw. Unfortunately sloughed the nail fairly short in the metaphyseal region of the femur. For that reason the larger nail was selected. 3 and 60 mm achieved better working length. The nail was then positioned with fluoroscopy for cephalomedullary's helical blade. The cannula was placed on the jig to allow positioning of the cephalo-medullary helical blade. The jig cannulas were then placed against the lateral cortex. The cephalo-medullary screw guidepin was advanced towards the femoral head. The center-center position was confirmed on fluoroscopy in AP and lateral planes. The length of the screw was measured off the guide. The helical blade screw was then opened on the back table and prepared on the screwdriver. The lateral cortical opening drill, followed by the triple drill reamer for the helical blade was advanced under fluoroscopic guidance. The helical blade was advanced over the guidepin to appropriate position. The helical blade was locked in rotation and then the traction was taken off. Fluoroscopy confirmed maintenance of reduction and adequate position of the implant. The compression sleeve was then advanced against the lateral femur to improve the trochanteric-shaft reduction and compress the intertrochanteric region fracture this to that comminution of the trochanteric region so the sleeve is backed off. The reduction of the segmental comminution was evaluated. The nail had done a lot of the anatomic evangelical of alignment. Rotation was judged from an anterior cortical spike. The proximal femur remained somewhat flexed through some comminution with a separate butterfly fragment. The majority the trochanteric region did lined up with the distal shaft in an appropriate manner. Attention then directed to the distal interlocks. Given the segmental comminution in the subtrochanteric region, I opted for 2 statically locked distal screws. These were done using the perfect cocopah technique. We did use the slotted hole for one of them,; however, the near cortex fractured as a screw was placed across the nail. The screw was removed. We then advanced to the distal static hole where we placed an interlock screw using perfect cocopah technique without complication. This completed the fixation of the fracture. Fluoroscopy was used in both AP and lateral planes to evaluate the entirety of the fracture and implant. Reduction and implant positions were acceptable. The wounds were then thoroughly irrigated with bulb syringe and normal saline. The deep fascial layer was approximated with 0 Vicryl suture. The dermal layer was approximated using 2-0 Vicryl suture. The final skin closure was completed with alanna. Wounds were dressed with sterile Xeroform, sterile gauze, and Ioban over ABDs. The patient tolerated procedure well, awoke from anesthesia without complication, was extubated in the operating room, and transferred to the PACU in stable condition. Disposition: The patient be weightbearing as tolerated. I recommended routine DVT prophylaxis consisting of oral aspirin. DVT prophylaxis should last 6 weeks. 24 hours of antibiotic prophylaxis should be continued. Physician greenhouse assistant attestation: Richie Mei PA-C was present and scrubbed for the duration of the case. He was essential to prepping/draping, patient positioning, retraction, and assistance with wound closure. I attest to the content of the Intraoperative Record and any orders documented therein. Any exceptions are noted below.
[2025-02-11] MEDS ORDERED: POLYETHYLENE (MIRALAX) 17 GM PACK PO PRN (14:03)
[2025-02-11] MEDS: SODIUM CHLORIDE 0.9% 1,000 ML IV SCH (14:40)
[2025-02-11] MEDS: ACETAMINOPHEN 325 MG TAB PO PRN (18:04)
[2025-02-11] MEDS: DOCUSATE SODIUM 100 MG CAP PO SCH (20:41)
[2025-02-11] MEDS: SENNA 8.6 MG TAB PO SCH (20:41)
[2025-02-11] MEDS: ASPIRIN 81 MG ECTAB PO SCH (20:41)
[2025-02-11] MEDS ORDERED: ASPIRIN 81 MG ECTAB PO SCH (21:00)
--- NOTE | 2025-02-12 06:02 | Electrocardiogram Report ---
Test Reason : Blood Pressure : */* mmHG Vent. Rate : 62 BPM Atrial Rate : 62 BPM P-R Int : 214 ms QRS Dur : 76 ms QT Int : 476 ms P-R-T Axes : 27 16 -7 degrees QTcB Int : 483 ms Sinus rhythm with 1st degree A-V block with Premature supraventricular complexes Otherwise normal ECG No previous ECGs available Confirmed by Deacon Morocho ([id number]) on 02/11/2025 11:54:49 AM Referred By: REFERRED SELF Confirmed By: Deacon Morocho
[2025-02-12 06:48] LABS: Hematocrit (blood only) 26.0 % (37.0-47.0); Hemoglobin 8.6 g/dl (12.0-16.0); Mean Corpuscular Hemoglobin 30.5 pg (25.0-34.0); Mean Corpuscular Volume 92.2 fL (80.0-100.0); Platelet Count 183 K/uL (130-400); RDW Standard Deviation 43.0 fL (36.4-46.3); Red Blood Count 2.82 M/uL (4.20-5.40); White Blood Count 7.20 K/ul (4.8-10.8)
[2025-02-12 07:13] LABS: Anion Gap 4.0 (3-11); Blood Urea Nitrogen 9.0 mg/dl (6-23); Calcium 8.0 mg/dl (8.6-10.3); Carbon Dioxide 29.0 mmol/L (21-32); Chloride 107.0 mmol/L (98-107); Creatinine Clr Calc Pharmacy 86.5 ml/min; Glucose 124.0 mg/dl (70-99(Fasting)); Magnesium 2.1 mg/dl (1.7-2.4); Potassium 4.2 mmol/L (3.5-5.1); Sodium 140.0 mmol/L (136-145)
[2025-02-12] MEDS: MULTIVITAMIN TAB PO SCH (07:56)
--- NOTE | 2025-02-12 09:19 | Orthopedic Progress Note ---
Date of Service February 12, 2025 Assessment & Plan (1) Subtrochanteric fracture of left femur: * S/p L femur ORIF * Continue Current Treatment * Disposition: TBD * Daily treatment: Physical Therapy/ Occupational Therapy per protocol * Weight bearing status: WBAT, assistive device as needed * Continue to monitor for ABLA * Pain control * DVT prophylaxis, recommend ASA 81mg BID x6 weeks * Office/hospital f/u 2 weeks for progress check and staple/suture removal * Remainder care per primary team * Stable for discharge from ortho procedure standpoint, further planning per primary team Subjective . Active Problems: S/p L TFN POD 1 69 y/o female s/p left TFN. Doing well overall, pain managed and improved function. Denies fever/chills, chest pain/SOB, nausea/vomiting. Otherwise no complaints. Review of Systems All systems reviewed & are unremarkable except as noted in HPI & below. Physical Exam . * General: Alert and oriented, no acute distress * Constitutional: well-developed, well-nourished. * Respiratory: Normal respiratory effort, no distress * Gastrointestinal: No tenderness to palpation, no rigidity or guarding. * Skin: No rash or lesion. * Neurologic: Grossly normal * Musculoskeletal: left hip surgical dressing CDI, not removed for exam. Otherwise no obvious deformity or overlying skin changes. Diffuse TTP proximal thigh and hip region. Otherwise no specific tenderness of distal thigh, lower leg, foot/ankle. AROM hip flexion intact, pain. AROM foot/ankle intact. Sensation intact plantar/dorsal foot. Brisk capillary refill. Results & Data Results & Data Laboratory Results . Diagnostic Findings . PG Care Time/CCT Total # of Minutes Spent Total Time Spent with Patient: Total time spent is greater than 50% in coordination of care (as documented) at patient's floor/unit and/or counseling patient: Coding Level of Care Code 49719 Post Operative Follow-Up Diagnoses Subtrochanteric fracture of left femur S72.22XA
[2025-02-12] MEDS: HYDROmorphone INJ 0.5 MG/0.5 ML SYR IV PRN (10:06)
--- NOTE | 2025-02-12 10:16 | XRay Report ---
XR femur LT 2V routine CLINICAL HISTORY: s/p left femur IM nail COMPARISON: 02/10/2025 FINDINGS: Interval left femoral gamma nail shows no hardware complication. There is improved alignme nt at the proximal femur fracture. There is expected soft tissue gas. Skin alanna are present. IMPRESSION: Improved alignment. ACT 112: Negative or not required by law. Electronically signed by: Vamsi Abbott M.D. 02/12/2025 10:15 AM
--- NOTE | 2025-02-12 15:12 | Hospitalist Progress Note ---
Date of Service February 12, 2025 Assessment & Plan (1) Trauma: (2) Fall from ladder: (3) Subtrochanteric fracture of left femur: Plan: Acute comminuted displaced Subtrochanteric fracture of left femur Secondary to mechanical fall Postoperative acute blood loss anemia --Hip X ray:Acute comminuted significantly displaced and angulated fracture involving the intertrochanteric and subtrochanteric regions of the left proximal femur. --S/P left proximal femur fracture closed reduction and cephalomedullary nail internal fixation by on 02/11/25 Fall precautions PT OT recommends acute rehab Continue bowel regimen to prevent constipation Pain control as needed Wound care, activity per orthopedics On aspirin twice daily for DVT prophylaxis for 6 weeks Monitor CBC, transfuse as needed. Hemoglobin 8.6 today May need rehab placement Appreciate orthopedics input Needs follow-up with orthopedics on discharge Right renal cyst Incidental finding on CT --ABD CT:Right renal cystic lesion measuring 2.6 cm with septations versus calcifications. Needs nonemergent renal ultrasound Follow-up as outpatient. Patient and family made aware. H/O PVCs, diastolic dysfunction, valvular heart disease Monitor volume status Currently no signs of volume overload Monitor and replete electrolytes as needed Prediabetes Last HbA1c 5.6 Hyperlipidemia Continue statin Code Status Full Code Disposition Rehab as able Admission and Anticipated Discharge Date Admission Date: February 10, 2025 Subjective Patient is seen and examined at bedside Reports having pain at left hip surgical site No other complaints today Discussed with patient's family at bedside Denies any chest pain, dyspnea, abdominal pain Review of Systems Review of Systems: All systems reviewed & are unremarkable except as noted in Subjective Physical Exam Physical Exam: Physical Exam: Vitals signs as noted above General Appearance:Moderately built and nourished, no apparent distress Head: normocephalic, Atraumatic Eyes: normal inspection, EOMI Neck: supple, Trachea midline Respiratory/Chest: Normal breath sounds, CTA, No accessory muscle use Cardiovascular: S1, S2, No murmur Abdomen/GI:Soft, Non tender, Bowel sounds present Extremities/Musculoskeletal:normal inspection, Left LE in traction Neurologic/Psych:AAOX3, grossly no focal neurological deficits Skin: normal color, warm Results & Data Results & Data Vital Signs (Past 12 Hours) Vital Signs Temp Pulse Resp BP Pulse Ox O2 Del Method 02/12/25 07:07 36.7 C 59 L 16 121/66 100 Room Air 02/12/25 02:50 36.7 C 62 16 109/62 96 Room Air Laboratory Results Short CBC 02/12/25 Range/Units 06:14 WBC 7.20 (4.8-10.8) K/ul Hgb 8.6 L (12.0-16.0) g/dl Hct 26.0 L (37.0-47.0) % Plt Count 183 (130-400) K/uL BMP 02/12/25 06:14 Sodium 140 Potassium 4.2 Chloride 107 Carbon Dioxide 29 BUN 9 Creatinine 0.53 L Glucose 124 H Calcium 8.0 L
[2025-02-12] MEDS: METOCLOPRAMIDE HCL INJ 5 MG/ML 2 ML VIAL IV PRN (15:30)
[2025-02-13 07:11] LABS: Hematocrit (blood only) 25.7 % (37.0-47.0); Hemoglobin 8.4 g/dl (12.0-16.0); Mean Corpuscular Hemoglobin 29.9 pg (25.0-34.0); Mean Corpuscular Volume 91.5 fL (80.0-100.0); Platelet Count 166 K/uL (130-400); RDW Standard Deviation 42.6 fL (36.4-46.3); Red Blood Count 2.81 M/uL (4.20-5.40); White Blood Count 6.29 K/ul (4.8-10.8)
[2025-02-13 07:33] LABS: Anion Gap 5.0 (3-11); Blood Urea Nitrogen 11.0 mg/dl (6-23); Calcium 8.1 mg/dl (8.6-10.3); Carbon Dioxide 29.0 mmol/L (21-32); Chloride 105.0 mmol/L (98-107); Creatinine Clr Calc Pharmacy 71.6 ml/min; Glucose 104.0 mg/dl (70-99(Fasting)); Potassium 3.8 mmol/L (3.5-5.1); Sodium 139.0 mmol/L (136-145)
--- NOTE | 2025-02-13 09:05 | Orthopedic Progress Note ---
Date of Service February 13, 2025 Assessment & Plan (1) Subtrochanteric fracture of left femur: * S/p L femur ORIF * Continue Current Treatment * Disposition: TBD * Daily treatment: Physical Therapy/ Occupational Therapy per protocol * Weight bearing status: WBAT, assistive device as needed * Continue to monitor for ABLA * Pain control, muscle relaxer added * DVT prophylaxis, recommend ASA 81mg BID x6 weeks * Office/hospital f/u 2 weeks for progress check and staple/suture removal * Remainder care per primary team * Stable for discharge from ortho procedure standpoint, further planning per primary team Subjective Active Problems: S/p L TFN POD 2 69 y/o female s/p left TFN. Doing well overall, pain managed and improved function. Denies fever/chills, chest pain/SOB, nausea/vomiting. Does note clicking sensation and thigh spasm with movement. Otherwise no complaints. Review of Systems All systems reviewed & are unremarkable except as noted in HPI & below. Physical Exam * General: Alert and oriented, no acute distress * Constitutional: well-developed, well-nourished. * Respiratory: Normal respiratory effort, no distress * Gastrointestinal: No tenderness to palpation, no rigidity or guarding. * Skin: No rash or lesion. * Neurologic: Grossly normal * Musculoskeletal: left hip surgical dressing CDI, not removed for exam. Otherwise no obvious deformity or overlying skin changes. Diffuse TTP proximal thigh and hip region. Otherwise no specific tenderness of distal thigh, lower leg, foot/ankle. AROM hip flexion intact, pain. AROM foot/ankle intact. Sensation intact plantar/dorsal foot. Brisk capillary refill. Results & Data Results & Data Laboratory Results . Diagnostic Findings . PG Care Time/CCT Total # of Minutes Spent Total Time Spent with Patient: Total time spent is greater than 50% in coordination of care (as documented) at patient's floor/unit and/or counseling patient: Coding Level of Care Code 34625 Post Operative Follow-Up Diagnoses Subtrochanteric fracture of left femur S72.22XA
[2025-02-13] MEDS: SODIUM CHLORIDE 0.9% 1,000 ML IV ONE (11:27)
[2025-02-13] MEDS: POLYETHYLENE (MIRALAX) 17 GM PACK PO ONE (12:50)
--- NOTE | 2025-02-13 15:26 | Hospitalist Progress Note ---
Date of Service February 13, 2025 Assessment & Plan (1) Trauma: (2) Fall from ladder: (3) Subtrochanteric fracture of left femur: Plan: Acute comminuted displaced Subtrochanteric fracture of left femur Secondary to mechanical fall Postoperative acute blood loss anemia --Hip X ray:Acute comminuted significantly displaced and angulated fracture involving the intertrochanteric and subtrochanteric regions of the left proximal femur. --S/P left proximal femur fracture closed reduction and cephalomedullary nail internal fixation by on 02/11/25 Fall precautions PT OT recommends acute rehab Continue bowel regimen to prevent constipation Pain control as needed Wound care, activity per orthopedics On aspirin twice daily for DVT prophylaxis for 6 weeks Monitor CBC, transfuse as needed. Hemoglobin 8.4 today Appreciate orthopedics input Needs follow-up with orthopedics on discharge Will give IV fluids to help with dizziness Weightbearing as tolerated assistance device as needed for ambulation, Waiting for rehab placement Right renal cyst Incidental finding on CT --ABD CT:Right renal cystic lesion measuring 2.6 cm with septations versus calcifications. Needs nonemergent renal ultrasound Follow-up as outpatient. Patient and family made aware. H/O PVCs, diastolic dysfunction, valvular heart disease Monitor volume status Currently no signs of volume overload Monitor and replete electrolytes as needed Prediabetes Last HbA1c 5.6 Hyperlipidemia Continue statin Code Status Full Code Disposition Rehab when accepted Admission and Anticipated Discharge Date Admission Date: February 10, 2025 Subjective Patient is seen and examined at bedside States having some dizziness with positional change Left hip pain at surgical site is controlled Reports spasms of left thigh with movement intermittently Denies any chest pain, dyspnea, abdominal pain Review of Systems Review of Systems: All systems reviewed & are unremarkable except as noted in Subjective Physical Exam Physical Exam: Physical Exam: Vitals signs as noted above General Appearance:Moderately built and nourished, no apparent distress Head: normocephalic, Atraumatic Eyes: normal inspection, EOMI Neck: supple, Trachea midline Respiratory/Chest: Normal breath sounds, CTA, No accessory muscle use Cardiovascular: S1, S2, No murmur Abdomen/GI:Soft, Non tender, Bowel sounds present Extremities/Musculoskeletal:normal inspection, Left hip surgical dressing Neurologic/Psych:AAOX3, grossly no focal neurological deficits Skin: normal color, warm Results & Data Results & Data Vital Signs (Past 12 Hours) Vital Signs Temp Pulse Resp BP Pulse Ox O2 Del Method 02/13/25 14:36 36.8 C 66 16 129/77 96 Room Air 02/13/25 07:01 36.3 C L 65 16 131/77 95 Room Air Laboratory Results Short CBC 02/13/25 Range/Units 06:55 WBC 6.29 (4.8-10.8) K/ul Hgb 8.4 L (12.0-16.0) g/dl Hct 25.7 L (37.0-47.0) % Plt Count 166 (130-400) K/uL BMP 02/13/25 06:55 Sodium 139 Potassium 3.8 Chloride 105 Carbon Dioxide 29 BUN 11 Creatinine 0.64 Glucose 104 H Calcium 8.1 L
[2025-02-13 19:35] VITALS: PULSE 67
[2025-02-13] MEDS: CYCLOBENZAPRINE HCL 10 MG TAB PO PRN (20:14)
[2025-02-14 06:24] LABS: Hematocrit (blood only) 23.7 % (37.0-47.0); Hemoglobin 7.6 g/dl (12.0-16.0); Mean Corpuscular Hemoglobin 29.9 pg (25.0-34.0); Mean Corpuscular Volume 93.3 fL (80.0-100.0); Platelet Count 152 K/uL (130-400); RDW Standard Deviation 43.2 fL (36.4-46.3); Red Blood Count 2.54 M/uL (4.20-5.40); White Blood Count 5.16 K/ul (4.8-10.8)
[2025-02-14 06:51] LABS: Anion Gap 4.0 (3-11); Blood Urea Nitrogen 10.0 mg/dl (6-23); Calcium 7.9 mg/dl (8.6-10.3); Carbon Dioxide 28.0 mmol/L (21-32); Chloride 107.0 mmol/L (98-107); Creatinine Clr Calc Pharmacy 83.4 ml/min; Glucose 97.0 mg/dl (70-99(Fasting)); Potassium 3.8 mmol/L (3.5-5.1); Sodium 139.0 mmol/L (136-145)
[2025-02-14 07:04] VITALS: BP 120/72; RESP 16; TEMP 98.2; O2SAT 96
--- NOTE | 2025-02-14 09:50 | Orthopedic Progress Note ---
Date of Service February 14, 2025 Assessment & Plan (1) Subtrochanteric fracture of left femur: * S/p L femur ORIF * Continue Current Treatment * Disposition: TBD * Daily treatment: Physical Therapy/ Occupational Therapy per protocol * Weight bearing status: WBAT, assistive device as needed * Continue to monitor for ABLA * Pain control, muscle relaxer added * Dressing change PRN * DVT prophylaxis, recommend ASA 81mg BID x6 weeks * Office/hospital f/u 2 weeks for progress check and staple/suture removal * Remainder care per primary team * Stable for discharge from ortho procedure standpoint, further planning per primary team Subjective Active Problems: S/p L TFN POD 3 69 y/o female s/p left TFN. Doing well overall, pain managed and improved function. Denies fever/chills, chest pain/SOB, nausea/vomiting. Thigh spasm improved with muscle relaxer. Review of Systems All systems reviewed & are unremarkable except as noted in HPI & below. Physical Exam * General: Alert and oriented, no acute distress * Constitutional: well-developed, well-nourished. * Respiratory: Normal respiratory effort, no distress * Gastrointestinal: No tenderness to palpation, no rigidity or guarding. * Skin: No rash or lesion. * Neurologic: Grossly normal * Musculoskeletal: left hip surgical dressing CDI, not removed for exam. Otherwise no obvious deformity or overlying skin changes. Diffuse TTP proximal thigh and hip region. Otherwise no specific tenderness of distal thigh, lower leg, foot/ankle. AROM hip flexion intact, pain. AROM foot/ankle intact. Sensation intact plantar/dorsal foot. Brisk capillary refill. Results & Data Results & Data Laboratory Results . Diagnostic Findings . PG Care Time/CCT Total # of Minutes Spent Total Time Spent with Patient: Total time spent is greater than 50% in coordination of care (as documented) at patient's floor/unit and/or counseling patient: Coding Level of Care Code 43185 Post Operative Follow-Up Diagnoses Subtrochanteric fracture of left femur S72.22XA
[2025-02-14 12:48] LABS: Hematocrit (blood only) 25.4 % (37.0-47.0); Hemoglobin 8.5 g/dl (12.0-16.0)
--- NOTE | 2025-02-14 13:44 | Discharge Summary ---
Date of Service February 14, 2025 Admission HPI Per Admitting Provider 69 F with hx of prediabetes, hyperlipidemia, PVC, mild mitral regurg., mild tricuspid regurg., diastolic dysfunction, hx of bladder prolapse, hx of migraine who presents in ED via EMS after falling off ladder and hitting side of her left leg, found to have left comminuted significantly displaced and angulated femur fracture. Pt was gardening, standing on the ladder and trimming wisteria bushes when the ladder tipped over on its side and she ended up falling on her left leg. Prior to this, she felt well and in her good health. No fever, chills, chest pain, shortness of breath, no abd. pain, n/v. No lightheadedness, or dizziness. Pt's is present at the bedside and helps provide history, says he was in the house when he heard her scream and reports it was obvious when he found her she had significant injury to her leg. Pt's friends also present at the bedside visiting. Pt is currently lying in bed, with her left leg in traction, she is awake, alert, answers appropriately. Reports some nausea after getting pain meds. Per ED provider, orthopedic surgery, Dr. Kamara consulted and plans to operate on the pt tomorrow. Anesthesia also consulted. Admission Exam Per Admitting Provider Constitutional: WD/WN, vitals as above Eyes: PERRL, conjunctivae normal, anicteric sclerae ENMT: external ear and nose normal, oropharynx normal Neck: normal visual inspection Respiratory: normal respiratory effort, lungs clear to auscultation Cardiovascular: RRR, no murmur, no edema Chest (Breasts): Chest: normal inspection of chest Gastrointestinal (Abdomen): normal bowel sounds, soft, nontender, no hepatosplenomegaly Musculoskeletal: LLE in traction d/t fractures, no LE edema Skin: no rashes, warm and dry Neurologic: PERRL, EOMI, accommodation nl, no face palsy, no dysarthria Psychiatric: A+Ox3, euthymic affect Principal Diagnosis Left femoral fracture Fall Discharge Exam Constitutional + well hydrated; no acute distress Eyes PERRL, conjunctivae normal, anicteric sclerae ENMT external ear and nose normal, oropharynx normal Respiratory normal respiratory effort, lungs clear to auscultation Cardiovascular Rate/Rhythm: regular rate and regular rhythm Gastrointestinal (Abdomen) normal bowel sounds, soft, nontender, no hepatosplenomegaly Musculoskeletal Clean dressing over left hip Neurologic PERRL, EOMI, accommodation nl, no face palsy, no dysarthria Psychiatric A+Ox3, euthymic affect Discharge Data Allergies Allergy/AdvReac Type Severity Reaction Status Date / Time No Known Drug Allergies Allergy Unknown Verified 02/10/25 16:16 Consultations 02/10/25 16:38 Consult Anesthesiology Routine 02/10/25 16:49 Consult Orthopedic Surgery Routine 02/10/25 16:58 ED Decision to Admit Stat Procedures Performed Operation Date: 02/11/25 09:00 Actual Procedures p left proximal femur fracture open reduction and internal fixation(Left) - Bryce Kamara MD Ordered Studies 02/10/25 15:34 CT abd pelvis IV con only Stat CT cervical spine wo con Stat CT chest diagnostic w con Stat CT head/brain wo con Stat 02/11/25 [place] hip LT 2-3V Routine Hospital Course (1) Trauma: (2) Fall from ladder: (3) Subtrochanteric fracture of left femur: 69 F with hx of prediabetes, hyperlipidemia, PVC, mild mitral regurg., mild tricuspid regurg., diastolic dysfunction, hx of bladder prolapse, hx of migraine who presents in ED via EMS after falling off ladder and hitting side of her left leg Acute comminuted displaced Subtrochanteric fracture of left femur Secondary to mechanical fall Postoperative acute blood loss anemia Hip X ray:Acute comminuted significantly displaced and angulated fracture involving the intertrochanteric and subtrochanteric regions of the left proximal femur. S/P left proximal femur fracture closed reduction and cephalomedullary nail internal fixation by on 02/11/25 Fall precautions PT OT recommended acute rehab Pain control On aspirin twice daily for DVT prophylaxis for 6 weeks per Ortho Hb dropped from 11.1 preop to 8s post op Hb remains in 8s Discharged to [facility], [place] for rehab Right renal cyst Incidental finding on CT --ABD CT:Right renal cystic lesion measuring 2.6 cm with septations versus calcifications. Needs nonemergent renal ultrasound Follow-up as outpatient. Patient aware. Prediabetes Last HbA1c 5.6 Hyperlipidemia Continue statin Total Time Total Time Spent Total Time Spent (In Minutes): 40 Total Time Includes: Examination of the Patient, Discharge Planning and Medication Reconciliation Discharge Plan Discharge Items Patient Disposition: Transfer [facility] Reason For Visit: FALL, FEMUR FX Discharge Diagnosis: Left femoral fracture Fall Condition on Discharge: Good Activity: As commented below Activity Comment: Weight bearing as tolerated Non-emergency contact: Primary Care Provider Call non-emergency contact if: you have any medication questions Follow-up/Referrals: Geronimo Hinkle MD [Primary Care Provider] - Diet: Regular Addtl Attending Provider Instructions: Mrs Brett Carlson presented to the hospital after a fall and found to have left hip fracture You had surgery on 02/11/25 You are being discharged to [facility], [place] for rehab. You are going to take Aspirin 81mg twice a day for 6 weeks to reduce risk of blood clots and then resume your once a day after the 6 weeks. Please ensure follow up with your Primary Doctor and Orthopedic surgery. It was a pleasure taking care of you Addtl Construction Project Mgr Provider Instructions: General Orthopedic Discharge Instructions Activity: Diet: You may resume previous diet. Medications: 1. Narcotic You will likely be sent home from the hospital with a prescription for the narcotic pain medication. Take it as needed. Side effects most commonly include nausea and constipation 2. Resume previous home medications unless otherwise instructed Dressing Care: If there is a soft dressing in place then leave the dressing intact for 5 days. On the 5th you may remove the dressing and leave the stitches open to air or cover them with band-aids. Keep the incision clean and dry If there is a hard splint then leave it in place until your follow-up visit in 2 weeks Showering: If you have a soft dressing you may shower right after the surgery but do not get the dressing wet. After the dressing is removed on the 5th day then you can get the stitches wet in the shower, but do not soak or scrub them. Let the soapy shower water run over the stitches and pat them dry. If you have a hard splint, cover it in a plastic bag and keep it dry. Do not remove it until the follow up appointment. Things To Watch For: 1. Drainage from the incision site that occurs more than one week after your surgery. 2. Increased redness at the incision site. 3. Fever above 102 degrees Fahrenheit. 4. Unusual chest pain or shortness of breath. 5. Call [facility] at with any of the above problems. Follow-Up Visit: Follow-up with Dr. Kamara team 2 weeks after your day of surgery. If you have any questions call Pending Studies at Discharge: No Stand-Alone Forms: My [facility] Skilled Items Patient informed of condition?: Yes DNR: No Discharge Level of Care: Skilled Communicable Disease: No Discharge Prognosis: Stable Lines: None Urinary Catheter: No Medications and DC Order Prescriptions: New cyclobenzaprine 10 mg Tablet 10 mg PO BID PRN (Reason: muscle spasm) Qty: 10 0RF acetaminophen 325 mg Tablet 650 mg PO QID Qty: 30 0RF oxycodone 5 mg Tablet 5 mg PO Q6H PRN (Reason: pain) Qty: 20 0RF docusate sodium 100 mg Capsule 100 mg PO BID Qty: 30 0RF polyethylene glycol 3350 [Miralax] 17 gram Powder In Packet 17 g PO DAILY PRN (Reason: constipation) Qty: 30 0RF sennosides [Senokot] 8.6 mg Tablet 17.2 mg PO HS Qty: 7 0RF ondansetron 4 mg tablet,disintegrating 4 mg PO Q6H PRN (Reason: nausea and vomiting) Qty: 30 0RF Continued rosuvastatin 5 mg tablet 5 mg PO QAM Qty: 30 0RF Changed aspirin 81 mg Tablet,Delayed Release (Dr/Ec) 81 mg PO BID 42 Days Qty: 84 0RF Discharge Orders: Discharge Order (Routine); Ordered 02/14/25 Ordered By: Shawnee Sharp/Other Patient Handouts: Hip Precautions, Hip Fx Surg Dc Admission Data Admit Date/Time: 02/10/25 18:31 Attending Provider: Shawnee España I. Admit Provider: Clint Martinez Primary Care Provider: Geronimo Hinkle Other Providers: Yari Wisdom; Bryce Kamara; Jarrell Gonzalez; [facility]; Roscoe Land [facility]; Martín Banda Other Interventions: Discharge Summary Assessment (RN) Last Done: 02/14/25 14:28
== END 2025-02-14 15:00 | DRG 481 ==
LOC: ED 15:13 → SUATTDRO 18:31 → 3W 18:31